=== PATIENT | female | born 1995 | race Caucasian/White ===

== ENCOUNTER 2025-04-11 12:11 | Emergency (ER) | payer OTHER, SELFPAY ==
[2025-04-11 12:11] VITALS: BMI 29.7
--- NOTE | 2025-04-11 12:18 | XR_ITS ---
Examination: Hand, right 3 views Technique: Hand AP, oblique, lateral 3 views Date and time of exam: April 11, 2025, 1233 hrs. Indications: Injury to the hand today with third digit pain. Findings: No acute fracture. No dislocation No foreign body Impression: No acute fracture
[2025-04-11 12:29] VITALS: BP 139/84; PULSE 76; RESP 19; TEMP 37.1; O2SAT 99
--- NOTE | 2025-04-11 12:32 | EDNOTE_ITS ---
Upper Extremity Injury RME/HPI General Chief Complaint: Hand/Wrist Problems Stated Complaint: INJURY TO RIGHT 3RD FINGER AT WORK Time Seen by Provider: 04/11/25 12:18 Arrival date/time: 04/11/25 12:11 29-year-old female presents to the emergency department for complaints of right hand third digit injury at work patient reports injury to the distal aspect of the finger patient reports a door accidentally closed on her hand Limitations: no limitations Related Data Allergies Allergy/AdvReac Type Severity Reaction Status Date / Time No Known Allergies Allergy Verified 04/11/25 12:13 Review of Systems Review of Systems Systems Reviewed: All systems reviewed, normal except as documented Constitutional Constitutional: Reports system reviewed and no additional complaints, except as documented, Denies fever(s) and Denies headache(s) Eyes Eyes: Reports system reviewed and no additional complaints, except as documented and Denies blurry vision ENT Ears, Nose, Mouth, and Throat: Reports system reviewed and no additional complaints, except as documented, Denies headache(s), Denies nasal congestion and Denies nasal discharge Cardiovascular Cardiovascular: Reports system reviewed and no additional complaints, except as documented, Denies chest pain and Denies dyspnea Respiratory Respiratory: Reports system reviewed and no additional complaints, except as documented, Denies chest congestion, Denies cough and Denies dyspnea Gastrointestinal Gastrointestinal: Reports system reviewed and no additional complaints, except as documented and Denies abdominal pain Musculoskeletal Musculoskeletal: Reports system reviewed and no additional complaints, except as documented, Reports arthralgias, Denies deformity and Reports joint swelling Integumentary/Breasts Skin/Breast: Reports system reviewed and no additional complaints, except as documented and Denies rash Neurologic Neurologic: Reports system reviewed and no additional complaints, except as documented, Reports as per HPI and Denies headache(s) Past Medical History Social History SMOKING STATUS: Never smoker ED Exam General Limitations: Present no limitations General appearance: Present alert and in no apparent distress Head Head exam: Present atraumatic Eye Eye exam: Present normal appearance, PERRL and EOMI ENT ENT exam: Present normal exam, normal oropharynx and mucous membranes moist Neck Neck exam: Present normal inspection, full ROM and trachea midline Chest Chest inspection: Present normal inspection and symmetric chest wall rise Respiratory Respiratory exam: Present normal lung sounds bilaterally Cardiovascular Cardiovascular exam: Present regular rate, normal rhythm and normal heart sounds Abdominal Exam Abdominal exam: Present soft and normal bowel sounds Extremities Exam Extremities exam: Present full ROM, tenderness, normal capillary refill and joint swelling Back Exam Back exam: Present normal inspection and full ROM Neurological Exam Neurological exam: Present alert, oriented X3 and CN II-XII intact Psychiatric Psychiatric exam: Present normal affect and normal mood Skin Skin exam: Present warm, dry, intact and normal color Course Quality Measures none Orders Category Date Time Status XR hand comp RT min 3V Stat Exams 04/11/25 12:18 Completed Vital Signs Vital signs: Vital Signs Temperature 98.7 F 04/11/25 12:29 Pulse Rate 76 04/11/25 12:29 Respiratory Rate 19 04/11/25 12:29 Blood Pressure 139/84 H 04/11/25 12:29 Pulse Oximetry (%) 99 04/11/25 12:29 Oxygen Delivery Method Room Air 04/11/25 12:29 O2 saturation 99% on room air within normal limits Extremity Injury MDM Narrative MDM Narrative:: 29-year-old female presents to the emergency department for complaints of right hand third digit injury at work patient reports injury to the distal aspect of the finger patient reports a door accidentally closed on her hand On exam patient well-appearing patient does not appear ill or toxic no acute distress Imaging of the left hand obtained no acute fracture or dislocation noted Workmen's Compensation papers completed Patient discharged home in no distress to follow-up with primary care doctor in the next 24 to 48 hours and for any worsening symptoms to return to the ER immediately Patient data External records reviewed:: [facility] previous records Clinical information provided by:: patient Social determinants that could affect healthcare access:: none Patient has the following chronic illnesses:: None How is presenting disease/condition affected by chronic disease/condition?: no chronic disease Evaluation data The following diagnostics were reviewed and interpreted by me:: radiology exam(s) Lab and/or radiology exams considered but not ordered:: Radiology obtain Interpretation Summary: Reviewed by me Medications / Prescriptions Medications or Prescriptions considered but not ordered:: Given Medication administrations:: Given Consultations Consultation(s) initiated? (list below): No Diagnosis Upper Extremity Injury Differential Diagnosis: other Most likely diagnosis given after review of the tests above:: Contusion of finger Admission Indicated Admission indicated?: not indicated Admission Request Was there a request for admission?: No Disposition Plan Disposition Plan: Discharge Discharge Attestation Discharge Attestation: The patient and all family members were given an opportunity to ask questions and understood the discharge instructions. Discharge instructions specifically effects, indications for sooner follow up or return to the emergency department, and the expected course of current diagnosis. Patient condition: Stable Discharge Plan Plan Patient Disposition: HOME (Self Care) Discharge Disposition comment: Stable Prescriptions/Referrals Referrals: Alec Santacruz MD [Primary Care Provider, Nephrology] - 04/13/25 Problem List Clinical Impression: Contusion of finger, Work related injury Patient/Caregiver Discharge Instructions Education Materials: ED Finger Contusion Additional Instructions: Please follow up with your primary care doctor in the next 24-48hrs for any worsening symptoms return here immediately Print Language: Citizen Of [place] Stand Alone Forms: Anna Marie Award Info., Patient Portal Info Letter PA/[employer] Supervising Physician PA/[employer] Supervising Physician: Dr. vidal
== END 2025-04-11 15:44 | disposition home or self-care (01) ==
PROVIDERS: Emergency Provider Family Medicine; PCP Internal Medicine
DX: S60.031A Contusion of right middle finger without damage to nail, initial encounter (principal); W23.0XXA Caught, crushed, jammed, or pinched between moving objects, initial encounter; Y93.89 Activity, other specified; Y92.238 Other place in hospital as the place of occurrence of the external cause; Y99.0 Civilian activity done for income or pay
CPT/HCPCS: 73130; 99283